=== PATIENT | male | born 1990 | race Caucasian/White ===

== ENCOUNTER 2016-10-17 22:03 | Emergency (ER) | payer BC ==
--- NOTE | ~2016-10-17 | ER ---
PATIENT'S NAME: [facility] AGE: 25 Y [address] ROOM: [place] [id number] LOCATION: [facility] ADMIT DATE: 10/17/2016 ER/Outpatient Report DISCHARGE DATE: 10/17/2016 FAMILY PHYSICIAN: Kannan Schwab MD ATTENDING PHYSICIAN: Sacha Daigle Time of Arrival: 2203 hours. Time of Evaluation: 2205 hours. CHIEF COMPLAINT: Forehead laceration. HISTORY OF PRESENT ILLNESS: This is a 25-year-old male, who presents to the ER with a forehead laceration. It happened approximately 45 minutes prior to arrival. The patient was at a [employer] concert when he slipped on some beer that was spilled on the floor and struck his head on the cement. He did not lose consciousness. He was not dazed. He has had no nausea or vomiting. He denies any neck or back pain. He states he is up-to-date on his immunizations. He denies any other problems at this time. ALLERGIES: PENICILLIN. MEDICATIONS: Aleve. 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 He has had appendectomy and a rectal abscess. SOCIAL HISTORY: Denies smoking, drug, or alcohol use. REVIEW OF SYSTEMS: CONSTITUTIONAL: Denies any change in weight or fatigue. HEENT: No change in vision. No nasal pain. GI: No vomiting or diarrhea. MUSCULOSKELETAL: No neck or back pain. SKIN: He has a forehead laceration. PHYSICAL EXAMINATION: VITAL SIGNS: Height 5 feet 11 inches stated, weight 90.4 kg taken, blood pressure is 140/93, pulse 86, respirations 16, temperature 97.1 degrees tympanically, and saturations 97% on room air. Delaney Coma Score is 15. PATIENT'S NAME: [facility] AGE: 25 Y [address] ROOM: [place] [address] LOCATION: [facility] ADMIT DATE: 10/17/2016 ER/Outpatient Report DISCHARGE DATE: 10/17/2016 FAMILY PHYSICIAN: Kannan Schwab MD ATTENDING PHYSICIAN: Sacha Daigle GENERAL: Alert, calm, well-developed, 25-year-old, in no acute distress. HEENT: Head: Normocephalic. Eyes: Pupils are equal and reactive to light. He does display moist mucous membranes. The patient has no tenderness with palpation over his left orbit or the bridge of his nose. EXTREMITIES: No clubbing or cyanosis. He does have full range of motion of all limbs. SKIN: The patient has a 4.5 cm laceration above his left eyebrow. It is not actively bleeding at this time. LABORATORY DATA AND X-RAYS: None were done. IMPRESSION: A 4.5 cm forehead laceration. ASSESSMENT AND PLAN: I did cleanse site with normal saline. I numbed the laceration site with 1% lidocaine with epinephrine, cleaned with Betadine, and flushed thoroughly with normal saline. I have placed 3 subcutaneous sutures using 5-0 Vicryl. I closed the laceration with 6-0 Ethilon. The patient did tolerate this well. We did cleanse area with saline. We will dismiss the patient home with the wound care handout. I advised them to monitor him throughout the night. He may ice the area. Tylenol or ibuprofen if needed, and his sutures should be removed in 5 to 7 days. The patient and patient's parents understand and agree with care. KACY JACOBS PA-C FOR MD KAMILA WALKER/rae /[id number] d: 10/18/164 t: 10/23/16 1812, OUTPATIENT REPORT
== END 2016-10-17 22:41 | disposition disaster alternative care site (69) ==
LOC: GACC 22:03
PROC: 0HQ1XZZ Repair Face Skin, External Approach (ICD-10-PCS; principal; 2016-10-17)
DX: S01.81XA Laceration without foreign body of other part of head, initial encounter (principal); Z88.0 Allergy status to penicillin; Z90.49 Acquired absence of other specified parts of digestive tract; Z88.1 Allergy status to other antibiotic agents; W18.09XA Striking against other object with subsequent fall, initial encounter